=== PATIENT | female | born 1995 | race Caucasian/White ===

== ENCOUNTER 2022-01-20 18:05 | Emergency (ER) | payer BC ==
[2022-01-20 18:12] VITALS: BP 121/83; PULSE 90; RESP 16; TEMP 98.2
[2022-01-20] MEDS ORDERED: SODIUM CHLORIDE 0.9% 1,000 ML IV STA (18:21)
[2022-01-20] MEDS ORDERED: methylPREDNISolone SOD SUCCI 125 MG/2 ML VIAL IV STA (18:21)
[2022-01-20] MEDS ORDERED: diphenhydrAMINE 50 MG/ML 1 ML VIAL IVP STA (18:21)
[2022-01-20] MEDS ORDERED: FAMOTIDINE 20 MG/2 ML VIAL IV STA (18:21)
--- NOTE | 2022-01-20 20:07 | XR ---
EXAMINATION TYPE: XR chest 2V DATE OF EXAM: 01/20/2022 8:02 PM COMPARISON: None TECHNIQUE: XR chest 2V Frontal and lateral views of the chest. CLINICAL INDICATION:Female, 27 years old with history of trouble breathing; FINDINGS: Lungs/Pleura: There is no evidence of pleural effusion, focal consolidation, or pneumothorax. Pulmonary vascularity: Unremarkable. Heart/mediastinum: Cardiomediastinal silhouette is unremarkable. Musculoskeletal: No acute osseous pathology. IMPRESSION: No acute cardiopulmonary disease/process.
--- NOTE | 2022-01-20 20:48 | ED ---
Allergic Reaction HPI - General Chief complaint: Allergic Reaction Stated complaint: allergic reaction Time Seen by Provider: 01/20/22 18:15 Source: patient Mode of arrival: ambulatory Limitations: no limitations - History of Present Illness Initial Comments: Patient is a 27-year-old female who presents to the emergency department for evaluation of allergic reaction. Patient states she noticed the rash on Friday which consisted of little red raised dots scattered on her thighs and to a lesser extent her arms. Patient states the rash is itchy but not painful. Patient woke up today with spread of the rash on her neck. She reports throat swelling which has made it hard for her to breathe. She denies history of similar reaction. Denies history of anaphylactic shock. Does not have any allergies that she is aware of. Denies uses new skin products and cleaning detergents however does admit sleeping in a hotel last week. Denies contact with plants or trees. Denies new medication use. Denies fever, chills, chest pain, abdominal pain, and other concerns. - Related Data Previous Rx's Medication Instructions Recorded Triamcinolone 0.1% Cream [Kenalog 1 applicatio TOPICAL TID #80 gm 01/20/22 0.1% Cream] predniSONE 50 mg PO DAILY #5 tab 01/20/22 Allergies Allergy/AdvReac Type Severity Reaction Status Date / Time No Known Allergies Allergy Verified 01/20/22 18:11 Review of Systems ROS Statement: Those systems with pertinent positive or pertinent negative responses have been documented in the HPI. ROS Other: All systems not noted in ROS Statement are negative. Past Medical History Past Medical History: No Reported History History of Any Multi-Drug Resistant Organisms: None Reported Past Surgical History: No Surgical Hx Reported Past Psychological History: No Psychological Hx Reported Smoking Status: Never smoker Past Alcohol Use History: None Reported Past Drug Use History: None Reported General Exam Limitations: no limitations General appearance: alert, in no apparent distress Head exam: Present: atraumatic, normocephalic, normal inspection Eye exam: Present: normal appearance, PERRL, EOMI. Absent: scleral icterus, conjunctival injection, periorbital swelling ENT exam: Present: normal oropharynx Respiratory exam: Present: normal lung sounds bilaterally. Absent: respiratory distress, wheezes, rales, rhonchi, stridor Cardiovascular Exam: Present: regular rate, normal rhythm, normal heart sounds. Absent: systolic murmur, diastolic murmur, rubs, gallop, clicks Neurological exam: Present: alert, oriented X3, CN II-XII intact Psychiatric exam: Present: normal affect, normal mood Skin exam: Present: warm, dry, intact, normal color, rash (cluster of several erythematous papules on the right neck. minmal erythematous papules on the bilateral arms and bilateral thighs ) Course Vital Signs 01/20/22 18:09 Temperature 98.2 F Pulse Rate 90 Respiratory 16 Rate Blood Pressure 121/83 O2 Sat by Pulse 100 Oximetry Medical Decision Making - Medical Decision Making This is a 27 year old female who presents with allergic reaction. Thorough history and examination were performed. Patient is well appearing. Vitals stable. Oxygen is 100% on room air. There is a cluster of several erythematous papules on the right neck. Minimal erythematous papules on the bilateral arms and bilateral thighs. Lungs are clear to auscultation bilaterally. Pharynx is normal-appearing without tongue or lip swelling. This rash resembles a contact dermatitis. Due to patient's symptoms I will treat systemically. Chest x-ray is negative for acute process. Patient given allergic reaction cocktail. Her symptoms including rash improved dramatically. Patient was observed closely in the emergency department. She remained stable. She will be discharged with prednisone as well as a topical steroid. She is encouraged to continue Benadryl for symptoms. Strict return parameters were discussed. Patient verbalizes understanding and is agreeable to this plan. Dr. Alvarado is my attending. - Lab Data Lab Results 01/20/22 Range/Units 18:58 Urine HCG, Qual Not Detected (Not Detectd) Disposition Clinical Impression: Allergic reaction Disposition: HOME SELF-CARE Condition: Good Instructions (If sedation given, give patient instructions): Acute Rash (ED) Additional Instructions: Take medication as directed. Apply cream until rash resolves. Take Benadryl as needed for symptoms. Follow-up with primary care provider in one to 2 days. Return to the emergency department if you experience new, concerning, or worsening symptoms. Prescriptions: Triamcinolone 0.1% Cream [Kenalog 0.1% Cream] 1 applicatio TOPICAL TID #80 gm predniSONE 50 mg PO DAILY #5 tab Is patient prescribed a controlled substance at d/c from ED?: No Referrals: Cintia Cortes MD [Primary Care Provider] - 1-2 days Time of Disposition: 20:48
== END 2022-01-20 21:03 | disposition home or self-care (01) ==
LOC: EC 18:05
DX: T78.40XA Allergy, unspecified, initial encounter (principal)
CPT/HCPCS: 81025; 71046; 99283; 96374; 96375; 96361; J1200; J2930; 99285